=== PATIENT | male | born 1965 | race Caucasian/White ===

== ENCOUNTER 2017-09-28 19:35 | Emergency (ER) | payer OTHER ==
[~2017-09-28] VITALS: Ht 175.3 cm; Wt 81.7 kg
[2017-09-28] MEDS ORDERED: BENADRYL25 MG PO (20:28)
[2017-09-28] MEDS ORDERED: METPRE4DP PO (20:28)
== END 2017-09-28 20:32 | disposition home or self-care (01) ==
LOC: ER 19:35
DX: T63.441A Toxic effect of venom of bees, accidental (unintentional), initial encounter (principal); F17.210 Nicotine dependence, cigarettes, uncomplicated
CPT/HCPCS: 96372; 99282; J1100; J1200